=== PATIENT | female | born 1985 | race American Indian/Alaskan Native ===

== ENCOUNTER 2024-10-25 19:02 | Emergency (ER) | payer MEDICAID | END 2024-10-25 20:52 | disposition home or self-care (01) | LOC: DL.ED 19:02 | DX: I62.00 Nontraumatic subdural hemorrhage, unspecified (principal); G80.1 Spastic diplegic cerebral palsy; Z88.0 Allergy status to penicillin; Z86.69 Personal history of other diseases of the nervous system and sense organs; Z98.890 Other specified postprocedural states | CPT/HCPCS: 99283 ==